=== PATIENT | female | born 1970 | race American Indian/Alaskan Native ===

== ENCOUNTER 2017-02-02 19:55 | Observation (INO) | payer MEDICAID, OTHER ==
--- NOTE | 2017-02-02 20:50 | ED PDOC ---
Arrival/HPI <Camilla Rubin - Last Filed: 02/02/17 22:55> <Edson Dolan - Last Filed: 02/03/17 00:17> - General Chief Complaint: Abdominal Pain Time Seen by Provider: 02/02/17 20:04 - History of Present Illness Narrative History of Present Illness (Text): 02/02/17 20:43 46 year old F w/ Past medical history of Hypertension and IDDM presents to the emergency depart complaining of nausea, abd pain, and headache. Pt states Sx began on Sunday w/ NB diarrhea x3 episodes. Pt began having generalized, crampy abd pain shortly after. Pt describes a "dropping" sensation after diarrhea. Yesterday, pt reports developing nausea but no vomiting. Pt reports being unable to tolerate her saliva or water. Pt admits to decreased appetite, myalgia, generalized weakness, fatigue. Pt reports chronic reflux w/ recent worsening. Pt admits to cough, MORALES, R arm pain, L knee pain; denies subjective F/ V, changes in vision, dysuria. (Camilla Rubin) Past Medical History - Provider Review Nursing Documentation Reviewed: Yes - Infectious Disease Hx of Infectious Diseases: None - Tetanus Immunization Tetanus Immunization: Unknown - Reproductive Menopause: Yes - Cardiac Hx Hypertension: Yes - Pulmonary Hx Bronchitis: Yes Hx Sleep Apnea: Yes - Neurological Hx Neurological Disorder: No - HEENT Hx HEENT Disorder: No - Renal Hx Renal Disorder: Yes - Endocrine/Metabolic Hx Endocrine Disorders: Yes Hx Diabetes Mellitus Type 2: Yes - Hematological/Oncological Hx Blood Disorders: No - Integumentary Hx Dermatological Disorder: No - Musculoskeletal/Rheumatological Hx Musculoskeletal Disorders: No - Gastrointestinal Hx Gastrointestinal Disorders: Yes Hx Constipation: Yes - Genitourinary/Gynecological Other/Comment: fibroids - Psychiatric Hx Anxiety: Yes Hx Depression: Yes Hx Substance Use: No - Surgical History Other/Comment: cyst (right ovary) and fibroid removal - Anesthesia Hx Anesthesia: Yes - Suicidal Assessment Feels Threatened In Home Enviroment: No <Camilla Rubin - Last Filed: 02/02/17 22:55> Family/Social History Family/Social History: Neoplasm/Cancer (pancreatic, breast) Smoking Status: Never Smoked Hx Alcohol Use: No Hx Substance Use: No <Camilla Rubin - Last Filed: 02/02/17 22:55> Allergies/Home Meds <Camilla Rubin - Last Filed: 02/02/17 22:55> <Edson Dolan - Last Filed: 02/03/17 00:17> Allergies/Adverse Reactions: Allergies No Known Allergies Allergy (Verified 02/02/17 19:57) Home Medications: Home Meds Medication Instructions Recorded Confirmed Metformin Hydrochloride [Metformin] 1,000 mg PO BID 01/22/15 02/02/17 Atenolol [Tenormin] 25 mg PO DAILY 02/02/17 02/02/17 Chlorthalidone [Hygroton] 25 mg PO DAILY 02/02/17 02/02/17 Insulin NPH Hum/Reg Insulin Hm 5 unit SC TID 02/02/17 02/02/17 [Humulin 70/30 Kwikpen] Omeprazole [Omeprazole] 40 mg PO DAILY 02/02/17 02/02/17 Review of Systems - Physician Review All systems were reviewed & negative as marked: Yes - Review of Systems Eyes: absent: Vision Changes Cardiovascular: absent: Chest Pain <ScottieCamilla - Last Filed: 02/02/17 22:55> Physical Exam Vital Signs Reviewed: Yes Temperature: Febrile Blood Pressure: Hypertensive Pulse: Tachycardic Respiratory Rate: Normal Appearance: Positive for: Ill-Appearing Pain Distress: None Mental Status: Positive for: Alert and Oriented X 3 - Systems Exam Head: Present: Atraumatic, Normocephalic Pupils: Present: PERRL Extroacular Muscles: Present: EOMI Conjunctiva: Present: Normal Mouth: Present: Moist Mucous Membranes Nose (Internal): Present: Normal Inspection Respiratory/Chest: Present: Clear to Auscultation, Good Air Exchange. No: Respiratory Distress, Accessory Muscle Use Cardiovascular: Present: Regular Rate and Rhythm, Normal S1, S2. No: Murmurs Abdomen: Present: Tenderness (minimal ), Normal Bowel Sounds. No: Distention, Peritoneal Signs, Rebound, Guarding Back: No: CVA Tenderness Upper Extremity: Present: Normal Inspection Lower Extremity: Present: Edema (L non-pitting edema) Neurological: Present: GCS=15, Speech Normal Skin: Present: Warm, Dry, Normal Color Psychiatric: Present: Alert, Oriented x 3, Normal Affect, Normal Mood <ScottieCamilla - Last Filed: 02/02/17 22:55> Medical Decision Making - Lab Interpretations I have reviewed the lab results: Yes <Camilla Rubin - Last Filed: 02/02/17 22:55> <Edson Dolan - Last Filed: 02/03/17 00:17> ED Course and Treatment: 02/02/17 20:59 46 year old F w/ abd pain - CBC, CMP, Lipase, Urinalysis and culture - CXR - Venous doppler r/o DVT - Tylenol 650mg - Pain control - anti-emetic (Camilla Rubin) 02/03/17 00:16 Seen and examined with resident. 46 y/o F p/w nausea and diarrhea with nontender abdominal pain. Hypokalemic on evaluation. Sepsis screening positive but lactate negative and not hypotensive. Accepted for observation. (Edson Dolan ) - Lab Interpretations Lab Results: 02/02/17 20:50 02/02/17 20:50 Lab Results 02/02/17 20:50: pO2 55, VBG pH 7.46 H, VBG pCO2 49.0, VBG HCO3 34.8 H, VBG Total CO2 36.3 H, VBG O2 Sat (Calc) 94.2 H, VBG Base Excess 9.4 H, VBG Potassium 2.6 L, Sodium 140.0, Chloride 105.0, Glucose 180 H, Lactate 0.9, FiO2 21.0, Venous Blood Potassium 2.6 L 02/02/17 20:50: Sodium 139, Chloride 97 L, Potassium 2.8 L*, Carbon Dioxide 34 H , Anion Gap 11, BUN 13, Creatinine 0.9, Est GFR ( Amer) > 60, Est GFR ( Non-Af Amer) > 60, Random Glucose 194 H, Calcium 9.5, Total Bilirubin 0.6, AST 25, ALT 28, Alkaline Phosphatase 64, Total Protein 7.8, Albumin 4.3, Globulin 3.5, Albumin/Globulin Ratio 1.2, Lipase 166 02/02/17 20:50: WBC 6.3, RBC 3.81, Hgb 11.6 L, Hct 32.5 L, MCV 85.3, MCH 30.4, MCHC 35.7, RDW 13.0, Plt Count 312, MPV 8.8, Gran % 65.9, Lymph % (Auto) 27.2, Jay % (Auto) 4.5, Eos % (Auto) 2.1, Baso % (Auto) 0.3, Gran # 4.13, Lymph # 1.7 , Jay # 0.3, Eos # 0.1, Baso # 0.02 - RAD Interpretation Radiology Orders: 02/02/17 20:41 CXR [CHEST PORTABLE] [RAD] Stat 02/02/17 20:48 DUPLEX LOWER EXTRM VEIN LEFT [US] Stat Duplex negative for DVT. CXR no active disease as read by me (Camilla Rubin) - Medication Orders Current Medication Orders: Atenolol (Tenormin) 25 mg PO DAILY SAMANTHA Potassium Chloride (Potassium Chloride 10 Meq/100 Ml) 10 meq in 100 mls @ 100 mls/hr IVPB Q2H SAMANTHA Stop: 02/03/17 00:29 Last Admin: 02/02/17 21:29 Dose: 100 mls/hr Sodium Chloride (Sodium Chloride 0.9%) 1,000 mls @ 100 mls/hr IV .Q10H SAMANTHA Metronidazole (Flagyl) 250 mg in 50 mls @ 100 mls/hr IVPB Q8 SAMANTHA PRN Reason: Protocol Stop: 02/08/17 06:01 Ceftriaxone Sodium (Rocephin 1 Gram Ivpb) 1 gm in 100 mls @ 100 mls/hr IVPB DAILY SAMANTHA PRN Reason: Protocol Pantoprazole Sodium (Protonix Ec Tab) 40 mg PO ACB SAMANTHA Discontinued Medications Acetaminophen (Tylenol 325mg Tab) 650 mg PO STAT STA Stop: 02/02/17 20:51 Last Admin: 02/02/17 21:20 Dose: 650 mg Famotidine (Pepcid) 20 mg IVP STAT STA Stop: 02/02/17 20:50 Last Admin: 02/02/17 21:21 Dose: 20 mg Sodium Chloride (Sodium Chloride 0.9%) 1,000 mls @ 999 mls/hr IV .Q1H1M STA Stop: 02/02/17 22:02 Last Admin: 02/02/17 21:21 Dose: 999 mls/hr Ketorolac Tromethamine (Toradol) 30 mg IVP STAT STA Stop: 02/02/17 20:42 Last Admin: 02/02/17 21:21 Dose: 30 mg Ondansetron HCl (Zofran Inj) 4 mg IVP STAT STA Stop: 02/02/17 20:42 Last Admin: 02/02/17 21:20 Dose: 4 mg Disposition/Present on Arrival - Present on Arrival Any Indicators Present on Arrival: No History of DVT/PE: No History of Uncontrolled Diabetes: No Urinary Catheter: No History of Decub. Ulcer: No History Surgical Site Infection Following: None - Disposition Have Diagnosis and Disposition been Completed?: Yes Disposition Time: 22:55 <Camilla Rubin - Last Filed: 02/02/17 22:55> - Disposition Patient Plan: Observation <Edson Dolan - Last Filed: 02/03/17 00:17> - Disposition Diagnosis: Hypokalemia, Abdominal pain Disposition: HOSPITALIZED Patient Problems: Current Active Problems Problem Status Onset Abdominal pain Acute Hypokalemia Acute Condition: GOOD
[2017-02-02 20:58] LABS: ADD MANUAL DIFF? NO
[2017-02-02] MEDS ORDERED: Sodium Chloride 0.9% 1,000 ML IV STA (21:02)
[2017-02-02 21:03] LABS: VENOUS BLOOD GAS BASE EXCESS 9.4 mmol/L (0.0-2.0); VENOUS BLOOD PH 7.46 (7.32-7.43)
[2017-02-02 21:07] LABS: BASO # 0.02 K/mm3 (0.0-2.0); BASO % 0.3 % (0.0-3.0); EOS # 0.1 (0.0-0.7); EOS % 2.1 % (1.5-5.0); GRAN # 4.13 (1.4-6.5); GRAN % 65.9 % (50.0-68.0); HEMATOCRIT 32.5 % (36.0-48.0); LYMPH # 1.7 (1.2-3.4); LYMPH % 27.2 % (22.0-35.0); MEAN CELL VOLUME 85.3 fL (80.0-105.0); MEAN CORPUSCULAR HEMOGLOBIN 30.4 pg (25.0-35.0); MEAN CORPUSCULAR HGB CONC 35.7 g/dl (31.0-37.0); MEAN PLATELET VOLUME 8.8 fl (7.0-11.0); MONO # 0.3 (0.1-0.6); MONO % 4.5 % (1.0-6.0); PLATELET COUNT 312 10^3/uL (120.0-450.0); WHITE BLOOD COUNT 6.3 10^3/ul (4.5-11.0)
[2017-02-02 21:12] LABS: ALB/GLOB RATIO 1.2 (1.1-1.8); ALKALINE PHOSPHATASE 64 U/L (38-133); ALT/SGPT 28 U/L (7-56); AST/SGOT 25 U/L (15-39); BILIRUBIN,TOTAL 0.6 mg/dL (0.2-1.3); BLOOD UREA NITROGEN 13 mg/dL (7-21); CALCIUM 9.5 mg/dL (8.4-10.5); CARBON DIOXIDE 34 mmol/L (21-33); CHLORIDE 97 mmol/L (98-107); GFR AFRICAN-AMERICAN > 60; GLUCOSE,RANDOM 194 mg/dL (70-110); LIPASE 166 U/L (23-300); SODIUM 139 mmol/L (132-148); TOTAL PROTEIN 7.8 g/dL (5.8-8.3)
[2017-02-02 21:16] LABS: POTASSIUM 2.8 mmol/L (3.6-5.0)
[2017-02-02 23:49] LABS: PH,URINE 6.5 (4.7-8.0); URINE BILIRUBIN NEGATIVE (NEGATIVE); URINE BLOOD NEGATIVE (NEGATIVE); URINE GLUCOSE (UA) NEGATIVE (NEGATIVE); URINE KETONE NEGATIVE (NEGATIVE); URINE LEUKOCYTE ESTERASE NEGATIVE Leu/uL (NEGATIVE); URINE PROTEIN NEGATIVE mg/dL (<30 mg/dL); URINE UROBILINOGEN 0.2 E.U./dL (<1 E.U./dL)
[2017-02-02 23:51] LABS: URINE APPEARANCE CLEAR (CLEAR); URINE COLOR LIGHT YELLOW (YELLOW)
[2017-02-03] MEDS ORDERED: Sodium Chloride 0.9% 1,000 ML IV SCH (00:15)
--- NOTE | 2017-02-03 01:58 | CP.PCM.HP ---
<Tana Peters - Last Filed: 02/03/17 02:32> History of Present Illness - History of Present Illness History of Present Illness: PGY-1 H&P 46 yo female with PMH of HTN and IDDM presents to the ED with nausea, abd pain, and headache. Pt states that her abd pain began 2 days ago with multiple episodes of non bloody diarrhea. Pt began having generalized, crampy abd pain. Patient also reports a "dropping" sensation after diarrhea. patient reports developing nausea but no vomiting yesterday. She states that she believed she has food poisoning from a turkey sandwich she ate on Sunday. Pt admits to decreased appetite, myalgia, generalized weakness, fatigue. Patient also complains of non productive cough, headache, and right arm pain that has been present fro the past few months. She denies fever, vomiting, changes in vision, dysuria. She also states that she is loosing weight, 10 lb over past few months. PMH: HTN, DM, fibroids PSH: cyst and fibroid removal social hx: denies smoking, occasional alcohol use, denies illicit drug use family hx: mother- cancer, father- stroke allergy: NKDA, seasonal PMD: currently switching to different provider Present on Admission - Present on Admission Any Indicators Present on Admission: No Review of Systems - Constitutional Constitutional: Chills, Fatigue, Headache, Weight Loss, Weakness. absent: Fever - EENT Eyes: absent: Change in Vision Nose/Mouth/Throat: Nasal Congestion. absent: Nasal Discharge, Sore Throat - Cardiovascular Cardiovascular: absent: Chest Pain, Diaphoresis, Dyspnea, Palpitations - Respiratory Respiratory: absent: Cough, Dyspnea, Hemoptysis - Gastrointestinal Gastrointestinal: Abdominal Pain, Cramping, Diarrhea, Nausea. absent: Constipation, Hematemesis, Hematochezia, Vomiting - Genitourinary Genitourinary: absent: Difficulty Urinating, Dysuria, Hematuria, Urinary Frequency - Musculoskeletal Musculoskeletal: Myalgias (right arm). absent: Arthralgias, Joint Swelling, Numbness, Tingling - Integumentary Integumentary: absent: Rash, Skin Ulcer, Sores, Swelling, Wounds - Neurological Neurological: Headaches, Weakness. absent: Dizziness, Numbness, Syncope, Tingling - Hematologic/Lymphatic Hematologic: absent: Easy Bleeding, Easy Bruising Past Patient History - Infectious Disease Hx of Infectious Diseases: None - Tetanus Immunizations Tetanus Immunization: Unknown - Past Social History Smoking Status: Never Smoked Alcohol: Occasional Drugs: Denies - CARDIAC Hx Hypertension: Yes - PULMONARY Hx Bronchitis: Yes Hx Sleep Apnea: Yes - NEUROLOGICAL Hx Neurological Disorder: No - HEENT Hx HEENT Problems: No - RENAL Hx Chronic Kidney Disease: Yes - ENDOCRINE/METABOLIC Hx Endocrine Disorders: Yes Hx Diabetes Mellitus Type 2: Yes - HEMATOLOGICAL/ONCOLOGICAL Hx Blood Disorders: No - INTEGUMENTARY Hx Dermatological Problems: No - MUSCULOSKELETAL/RHEUMATOLOGICAL Hx Musculoskeletal Disorders: No - GASTROINTESTINAL Hx Gastrointestinal Disorders: Yes Hx Constipation: Yes - GENITOURINARY/GYNECOLOGICAL Other/Comment: fibroids - PSYCHIATRIC Hx Anxiety: Yes Hx Depression: Yes Hx Substance Use: No - SURGICAL HISTORY Other/Comment: cyst (right ovary) and fibroid removal - ANESTHESIA Hx Anesthesia: Yes Meds Allergies/Adverse Reactions: Allergies Allergy/AdvReac Type Severity Reaction Status Date / Time No Known Allergies Allergy Verified 02/02/17 19:57 Physical Exam - Constitutional Appears: No Acute Distress - Head Exam Head Exam: ATRAUMATIC, NORMOCEPHALIC - Eye Exam Eye Exam: EOMI, Normal appearance - ENT Exam ENT Exam: Mucous Membranes Moist - Respiratory Exam Respiratory Exam: Clear to Auscultation Bilateral, NORMAL BREATHING PATTERN. absent: Decreased Breath Sounds, Rales, Rhonchi, Wheezes, Respiratory Distress - Cardiovascular Exam Cardiovascular Exam: REGULAR RHYTHM, +S1, +S2. absent: Tachycardia, Diastolic murmur, Systolic Murmur - GI/Abdominal Exam GI & Abdominal Exam: Normal Bowel Sounds, Soft, Tenderness. absent: Distended, Firm, Guarding - Extremities Exam Extremities exam: Positive for: normal inspection. Negative for: pedal edema, tenderness - Neurological Exam Neurological exam: Oriented x3 Additional comments: Patient is very lethargic - Skin Skin Exam: Dry, Intact, Normal Color, Warm Results - Vital Signs Recent Vital Signs: Last Vital Signs Temp 98.4 F 02/02/17 23:31 Pulse 73 02/03/17 01:02 Resp 16 02/03/17 01:02 BP 135/92 H 02/03/17 01:02 Pulse Ox 98 02/03/17 01:02 - Labs Result Diagrams: 02/02/17 20:50 02/02/17 20:50 Labs: Laboratory Results - last 24 hr 02/02/17 23:28 Urine Color Light yellow Urine Appearance Clear Urine pH 6.5 Ur Specific [place] 1.010 Urine Protein Negative Urine Glucose (UA) Negative Urine Ketones Negative Urine Blood Negative Urine Nitrate Negative Urine Bilirubin Negative Urine Urobilinogen 0.2 Ur Leukocyte Esterase Negative Assessment & Plan - Assessment and Plan (Free Text) Assessment: 46 yo female with PMH of HTN and IDDM presents to the ED with nausea, abd pain most likely secondary to gastroenteritis, found to be hypokalemic in ED. Plan: 1. abd pain/ nausea - febrile on admission without leukocytosis - most likely gastroenteritis - will order abd/pel CT - NPO - IVF NS @100 - will start rocefen and flagyl - procalcitonin 2. hypokalemia - 2.9 in ED - replaced wuth 2 K riders - repeat in AM 3. DM - hold home insulin while pt is NPO - ISSS- low - fingersticks ACHS 4. HTN - cont home atenolol - hold thiazide diuretic due to hypokalemia - cont to monitor ppx GI- protonix DVT- SCDs <Madiha Beal - Last Filed: 02/03/17 06:58> Results - Vital Signs Recent Vital Signs: Last Vital Signs Temp 98.2 F 02/03/17 02:19 Pulse 61 02/03/17 02:19 Resp 20 02/03/17 02:19 BP 113/84 02/03/17 02:19 Pulse Ox 98 02/03/17 01:02 - Labs Result Diagrams: 02/02/17 20:50 02/02/17 20:50 Labs: Laboratory Results - last 24 hr 02/02/17 23:28 Urine Color Light yellow Urine Appearance Clear Urine pH 6.5 Ur Specific [place] 1.010 Urine Protein Negative Urine Glucose (UA) Negative Urine Ketones Negative Urine Blood Negative Urine Nitrate Negative Urine Bilirubin Negative Urine Urobilinogen 0.2 Ur Leukocyte Esterase Negative Attending/Attestation - Attestation I have personally seen and examined this patient.: Yes I have fully participated in the care of the patient.: Yes I have reviewed all pertinent clinical information: Yes Notes (Text): 02/03/17 06:57 Patient was seen when she was in room # 568-02 Agree with history , physical examination , assessment and plan.
[2017-02-03 02:52] VITALS: RESP 20; BMI 29.8
[2017-02-03] MEDS: metroNIDAZOLE IV 250mg/50 ml 250 MG/50 ML BAG IVPB SCH ×3 (05:39→21:49)
[2017-02-03] MEDS ORDERED: Pantoprazole 40 mg EC Tab PO SCH (07:30)
[2017-02-03 07:36] LABS: ADD MANUAL DIFF? NO
[2017-02-03 08:01] LABS: ALB/GLOB RATIO 1.1 (1.1-1.8); ALKALINE PHOSPHATASE 56 U/L (38-133); ALT/SGPT 25 U/L (7-56); AST/SGOT 24 U/L (15-39); BILIRUBIN,TOTAL 0.5 mg/dL (0.2-1.3); BLOOD UREA NITROGEN 13 mg/dL (7-21); CALCIUM 8.6 mg/dL (8.4-10.5); CARBON DIOXIDE 31 mmol/L (21-33); CHLORIDE 103 mmol/L (98-107); GFR AFRICAN-AMERICAN > 60; GLUCOSE,RANDOM 123 mg/dL (70-110); SODIUM 141 mmol/L (132-148)
[2017-02-03 08:29] LABS: POTASSIUM 2.7 mmol/L (3.6-5.0)
[2017-02-03 08:46] LABS: BASO # 0.01 K/mm3 (0.0-2.0); BASO % 0.2 % (0.0-3.0); EOS # 0.2 (0.0-0.7); EOS % 3.5 % (1.5-5.0); GRAN % 39.5 % (50.0-68.0); HEMATOCRIT 30.4 % (36.0-48.0); LYMPH # 2.4 (1.2-3.4); LYMPH % 49.1 % (22.0-35.0); MEAN CELL VOLUME 85.6 fL (80.0-105.0); MEAN CORPUSCULAR HEMOGLOBIN 29.3 pg (25.0-35.0); MEAN CORPUSCULAR HGB CONC 34.2 g/dl (31.0-37.0); MEAN PLATELET VOLUME 8.9 fl (7.0-11.0); MONO # 0.4 (0.1-0.6); MONO % 7.7 % (1.0-6.0); PLATELET COUNT 292 10^3/uL (120.0-450.0); WHITE BLOOD COUNT 4.8 10^3/ul (4.5-11.0)
[2017-02-03] MEDS ORDERED: Potassium Chloride 20 mEq ER Tab PO ONE ×2 (09:41→12:47)
[2017-02-03] MEDS: cefTRIAXone 1 gm 1 GM/100 ML BAG IVPB SCH (09:49)
--- NOTE | 2017-02-03 09:59 | CT ---
PROCEDURE: CT Abdomen and Pelvis without intravenous contrast HISTORY: abd pain COMPARISON: None. TECHNIQUE: Technique. Contrast Dose: Radiation dose: Total exam DLP = 549 mGy-cm. This CT exam was performed using one or more of the following dose reduction techniques: Automated exposure control, adjustment of the mA and/or kV according to patient size, and/or use of iterative reconstruction technique. FINDINGS: LOWER THORAX: Unremarkable. LIVER: Unremarkable. No gross lesion or ductal dilatation. GALLBLADDER AND BILE DUCTS: Unremarkable. PANCREAS: Unremarkable. No gross lesion or ductal dilatation. SPLEEN: Unremarkable. ADRENALS: Unremarkable. No mass. KIDNEYS AND URETERS: 2.7 centimeter right upper pole renal cyst.. No hydronephrosis. No solid mass. VASCULATURE: Unremarkable. No aortic aneurysm. BOWEL: Unremarkable. No obstruction. No gross mural thickening. APPENDIX: Unremarkable. Normal appendix. PERITONEUM: Unremarkable. No free fluid. No free air. LYMPH NODES: Unremarkable. No enlarged lymph nodes. BLADDER: Unremarkable. REPRODUCTIVE: Leiomyomatous uterus. BONES: No acute fracture. OTHER FINDINGS: None. IMPRESSION: Right renal cyst. Leiomyomatous uterus.
--- NOTE | 2017-02-03 10:01 | RAD ---
HISTORY: fever COMPARISON: No prior. FINDINGS: LUNGS: No active pulmonary disease. PLEURA: No significant pleural effusion identified, no pneumothorax apparent. CARDIOVASCULAR: Normal. OSSEOUS STRUCTURES: No significant abnormalities. VISUALIZED UPPER ABDOMEN: Normal. OTHER FINDINGS: None. IMPRESSION: No active disease.
[2017-02-03] MEDS: Insulin Reg-MEDIUM-Coverage SC SCH ×3 (12:36→21:58)
--- NOTE | 2017-02-03 13:08 | US ---
PROCEDURE: Left lower extremity venous US HISTORY: Leg pain and swelling. Evaluate for DVT. PHYSICIAN(S): Jairo Loyola MD. TECHNIQUE: Duplex sonography and color-flow Doppler with graded compression were used to evaluate the deep venous system of the left lower extremity. FINDINGS: The visualized deep venous system of the left lower extremity is sonographically normal and compressible. Normal wave forms and augmentation are seen. There is no sonographic evidence for deep venous thrombosis in the visualized segments of the left lower extremity. IMPRESSION: 1. No sonographic evidence for deep venous thrombosis in the visualized segments of the left lower extremity.
--- NOTE | 2017-02-03 14:34 | US ---
PROCEDURE: HISTORY: LLQ pain, F/U uterine fibroids COMPARISON: TECHNIQUE: FINDINGS: The uterus measures 10.5 x 5.5 x 5.9 centimeters. There is a 3.7 centimeter central leiomyoma. The endometrium measures 6 millimeters. The right ovary measures 2.7 x 2.0 centimeters. Left ovary is not identified. There is no free fluid the pelvis. IMPRESSION: Leiomyomatous uterus.
[2017-02-03] MEDS: POLYETHYLENE GLYCOL 3350 17 GM/Dose PACKET PO SCH (16:21)
[2017-02-03 17:07] VITALS: TEMP 98.1
[2017-02-04] MEDS: metroNIDAZOLE IV 250mg/50 ml 250 MG/50 ML BAG IVPB SCH (05:25)
[2017-02-04 07:10] LABS: ADD MANUAL DIFF? NO
[2017-02-04 07:17] LABS: BASO # 0.02 K/mm3 (0.0-2.0); BASO % 0.4 % (0.0-3.0); EOS # 0.3 (0.0-0.7); EOS % 5.5 % (1.5-5.0); GRAN # 2.07 (1.4-6.5); GRAN % 45.4 % (50.0-68.0); HEMATOCRIT 29.7 % (36.0-48.0); LYMPH % 44.3 % (22.0-35.0); MEAN CELL VOLUME 85.8 fL (80.0-105.0); MEAN CORPUSCULAR HEMOGLOBIN 29.5 pg (25.0-35.0); MEAN CORPUSCULAR HGB CONC 34.3 g/dl (31.0-37.0); MEAN PLATELET VOLUME 8.8 fl (7.0-11.0); MONO # 0.2 (0.1-0.6); MONO % 4.4 % (1.0-6.0); PLATELET COUNT 272 10^3/uL (120.0-450.0); RED CELL DISTRIBUTION WIDTH 13.1 % (11.5-14.5); WHITE BLOOD COUNT 4.6 10^3/ul (4.5-11.0)
[2017-02-04 07:34] LABS: ALB/GLOB RATIO 1.1 (1.1-1.8); ALKALINE PHOSPHATASE 54 U/L (38-133); ALT/SGPT 32 U/L (7-56); AST/SGOT 23 U/L (15-39); BILIRUBIN,TOTAL 0.3 mg/dL (0.2-1.3); BLOOD UREA NITROGEN 12 mg/dL (7-21); CALCIUM 8.5 mg/dL (8.4-10.5); CARBON DIOXIDE 27 mmol/L (21-33); CHLORIDE 106 mmol/L (98-107); GFR AFRICAN-AMERICAN > 60; GLUCOSE,RANDOM 197 mg/dL (70-110); POTASSIUM 3.9 mmol/L (3.6-5.0); SODIUM 140 mmol/L (132-148); TOTAL PROTEIN 6.6 g/dL (5.8-8.3)
[2017-02-04] MEDS: Insulin Reg-MEDIUM-Coverage SC SCH (08:00)
[2017-02-04 08:48] VITALS: BP 145/89; PULSE 71; O2SAT 98
--- NOTE | 2017-02-04 08:54 | PN ---
DATE: 02/04/2017 I examined the patient this morning. She is a 46-year-old black female admitted with complaints of abdominal pain, burning, dyspepsia, also hypokalemia. Symptoms were suggestive of a possible gastroenteritis. Today, relative to yesterday, symptoms improved, is able to handle some degree of a diet. Pain decreased by roughly 50% or more. No complaints of nausea, vomiting , or dysphagia. The patient was apparently given something for her bowel movements yesterday. Still having somewhat of a difficult time due to uterine fibroids, which she feels are causing a compressive effect on distal segment of the colon. PHYSICAL EXAMINATION: VITAL SIGNS: I reviewed this patient's vital signs. HEENT: Noncontributory. LUNGS: Clear to auscultation. HEART: Regular rhythm. ABDOMEN: Significant for no tenderness in the epigastric, left upper quadrant or right upper quadrant or periumbilical. She is exhibiting some very mild cramping sensation in the left lower quadrant and suprapubic area. I reviewed the patient's laboratory data to date. OVERALL ASSESSMENT: This is a 46-year-old female admitted with complaints of abdominal cramping, change in bowel movements, currently doing better on the current therapeutic regimen. The patient has no nausea or vomiting. Abdominal pain has somewhat resolved. I did advise her to practice antireflux precautions and discussed this on several occasions. It was suggested that medication for acid reflux should be taken on a consistent basis rather than intermittently. As indicated in my note yesterday, the patient related a history of Helicobacter pylori positivity in the range of 2007. She was very dubious about whether antibiotics were given at that time point. Suggest after discharge the patient follow up with the lab request for an Helicobacter pylori breath and stool test to verify clearance of the organism. The patient has a history of uterine fibroids documented on current imaging studies. She had previously been scheduled for surgery. However, this was deferred at that time point due to hyperglycemia. This should probably be corrected in the very near future. As of this time point, due to the compressive effect of the fibroids, not much I can do to alleviate change in bowel movements except possible stool softener, full liquid diet or something very soft to pass by the large uterine fibroids. The patient is currently on a regular diet and seems to have tolerated that fine. Isael Taylor DO, PhD cc: [id number] TT: 02/04/2017 08:53:13 Confirmation # [id number] Dictation # [id number] en MTDD
[2017-02-04] MEDS ORDERED: Magnesium Citrate Oral SOL (300 ml) PO ONE (09:26)
[2017-02-04] MEDS: POLYETHYLENE GLYCOL 3350 17 GM/Dose PACKET PO SCH (09:49)
[2017-02-04] MEDS: cefTRIAXone 1 gm 1 GM/100 ML BAG IVPB SCH (09:50)
--- NOTE | 2017-02-04 12:10 | CP.PCM.DIS ---
<Xiomara Schmidt - Last Filed: 02/04/17 12:15> Provider - Provider Date of Admission: 02/02/17 23:09 Attending physician: Ju Blas MD Primary care physician: Faisal Palomino MD Consults: GI: Dr. Taylor Time Spent in preparation of Discharge (in minutes): 45 Diagnosis - Discharge Diagnosis (1) GERD (gastroesophageal reflux disease) Status: Chronic (2) Uterine fibroid Status: Chronic (3) Abdominal pain Status: Acute Hospital Course - Lab Results Lab Results: Most Recent Lab Values WBC 4.6 10^3/ul (4.5-11.0) 02/04/17 07:08 RBC 3.46 10^6/uL (3.5-6.1) L 02/04/17 07:08 Hgb 10.2 gm/dL (12.0-16.0) L 02/04/17 07:08 Hct 29.7 % (36.0-48.0) L 02/04/17 07:08 MCV 85.8 fL (80.0-105.0) 02/04/17 07:08 MCH 29.5 pg (25.0-35.0) 02/04/17 07:08 MCHC 34.3 g/dl (31.0-37.0) 02/04/17 07:08 RDW 13.1 % (11.5-14.5) 02/04/17 07:08 Plt Count 272 10^3/uL (120.0-450.0) 02/04/17 07:08 MPV 8.8 fl (7.0-11.0) 02/04/17 07:08 Gran % 45.4 % (50.0-68.0) L 02/04/17 07:08 Lymph % (Auto) 44.3 % (22.0-35.0) H 02/04/17 07:08 [place] % (Auto) 4.4 % (1.0-6.0) 02/04/17 07:08 Eos % (Auto) 5.5 % (1.5-5.0) H 02/04/17 07:08 Baso % (Auto) 0.4 % (0.0-3.0) 02/04/17 07:08 Gran # 2.07 (1.4-6.5) 02/04/17 07:08 Lymph # 2.0 (1.2-3.4) 02/04/17 07:08 [place] # 0.2 (0.1-0.6) 02/04/17 07:08 Eos # 0.3 (0.0-0.7) 02/04/17 07:08 Baso # 0.02 K/mm3 (0.0-2.0) 02/04/17 07:08 pO2 55 mm/Hg (30-55) 02/02/17 20:50 VBG pH 7.46 (7.32-7.43) H 02/02/17 20:50 VBG pCO2 49.0 (40-60) 02/02/17 20:50 VBG HCO3 34.8 mmol/l (21-28) H 02/02/17 20:50 VBG Total CO2 36.3 mmol.L (22-28) H 02/02/17 20:50 VBG O2 Sat (Calc) 94.2 % (40-65) H 02/02/17 20:50 VBG Base Excess 9.4 mmol/L (0.0-2.0) H 02/02/17 20:50 VBG Potassium 2.6 mmol/L (3.6-5.2) L 02/02/17 20:50 Sodium 140.0 mmol/L (132-148) 02/02/17 20:50 Chloride 105.0 mmol/L (98-107) 02/02/17 20:50 Glucose 180 mg/dl (65-105) H 02/02/17 20:50 Lactate 0.9 mmol/L (0.7-2.1) 02/02/17 20:50 FiO2 21.0 % 02/02/17 20:50 Sodium 140 mmol/L (132-148) 02/04/17 07:08 Potassium 3.9 mmol/L (3.6-5.0) 02/04/17 07:08 Chloride 106 mmol/L (98-107) 02/04/17 07:08 Carbon Dioxide 27 mmol/L (21-33) 02/04/17 07:08 Anion Gap 11 (10-20) 02/04/17 07:08 BUN 12 mg/dL (7-21) 02/04/17 07:08 Creatinine 0.8 mg/dL (0.5-1.4) 02/04/17 07:08 Est GFR ( Amer) > 60 02/04/17 07:08 Est GFR (Non-Af Amer) > 60 02/04/17 07:08 Random Glucose 197 mg/dL (70-110) H 02/04/17 07:08 Calcium 8.5 mg/dL (8.4-10.5) 02/04/17 07:08 Magnesium 2.0 mg/dL (1.7-2.2) 02/03/17 09:20 Total Bilirubin 0.3 mg/dL (0.2-1.3) 02/04/17 07:08 AST 23 U/L (15-39) 02/04/17 07:08 ALT 32 U/L (7-56) 02/04/17 07:08 Alkaline Phosphatase 54 U/L (38-133) 02/04/17 07:08 Total Protein 6.6 g/dL (5.8-8.3) 02/04/17 07:08 Albumin 3.4 g/dL (3.0-4.8) 02/04/17 07:08 Globulin 3.2 gm/dL 02/04/17 07:08 Albumin/Globulin Ratio 1.1 (1.1-1.8) 02/04/17 07:08 Lipase 166 U/L (23-300) 02/02/17 20:50 Procalcitonin 0.13 NG/ML (0.19-0.49) L 02/03/17 01:00 Venous Blood Potassium 2.6 mmol/L (3.6-5.2) L 02/02/17 20:50 Urine Color Light yellow (YELLOW) 02/02/17 23:28 Urine Appearance Clear (CLEAR) 02/02/17 23:28 Urine pH 6.5 (4.7-8.0) 02/02/17 23:28 Ur Specific Maple 1.010 (1.005-1.035) 02/02/17 23:28 Urine Protein Negative mg/dL (<30 mg/dL) 02/02/17 23:28 Urine Glucose (UA) Negative mg/dL (NEGATIVE) 02/02/17 23:28 Urine Ketones Negative mg/dL (NEGATIVE) 02/02/17 23:28 Urine Blood Negative (NEGATIVE) 02/02/17 23:28 Urine Nitrate Negative (NEGATIVE) 02/02/17 23:28 Urine Bilirubin Negative (NEGATIVE) 02/02/17 23:28 Urine Urobilinogen 0.2 E.U./dL (<1 E.U./dL) 02/02/17 23:28 Ur Leukocyte Esterase Negative Ann/uL (NEGATIVE) 02/02/17 23:28 - Hospital Course Hospital Course: 46 year old female with past medical history of HTN, DM, fibroids is admitted to hospital for intractable abdominal pain and nausea. Patient was afebrile and had a normal WBC count on admission. Patient was made NPO and started on IV fluids. CT of abdomen showed right renal cyst 2.7 cm and leiomyomatous uterus. Transvaginal US also showed leiomyomatous uterus. GI was consulted and recommended antireflux medications and outpatient follow up for H pylori testing. Patient's diet was slowly advanced and her symptoms improved. Patient deemed stable for discharge. Discharge instructions given to patient: Patient is to follow up with PMD upon discharge. Patient is to follow up with production machine tender, Dr. Taylor upon discharge. Follow up with GI per PMD. Needs outpatient EGD and colonoscopy. Patient is recommended to have H. Pylori testing upon discharge. follow-up with [facility] for fibroid surgery. Patient is discharge with the following medications: Protonix 40 mg po daily # 30 tabs, milk of mag and colace. Script will be given to patient before discharge. - Date & Time of H&P Date of H&P: 02/04/17 Time of H&P: 12:15 Discharge Exam - Head Exam Head Exam: ATRAUMATIC, NORMOCEPHALIC - Eye Exam Eye Exam: EOMI - ENT Exam ENT Exam: Mucous Membranes Moist - Respiratory Exam Respiratory Exam: Clear to PA & Lateral, NORMAL BREATHING PATTERN. absent: Accessory Muscle Use, Rales, Rhonchi, Wheezes, Respiratory Distress - Cardiovascular Exam Cardiovascular Exam: REGULAR RHYTHM, +S1, +S2. absent: Diastolic murmur, Gallop , Rubs, Systolic Murmur - GI/Abdominal Exam GI & Abdominal Exam: Normal Bowel Sounds, Unremarkable. absent: Distended, Firm , Guarding, Rigid, Soft, Tenderness - Extremities Exam Additional comments: no edema or tenderness - Neurological Exam Neurological exam: Alert, Oriented x3 - Psychiatric Exam Psychiatric exam: Normal Affect, Normal Mood - Skin Skin Exam: Dry, Intact, Normal Color, Warm Discharge Plan - Discharge Medications Prescriptions: Docusate [Colace] 100 mg PO BID #30 cap Magnesium Citrate [Citrate of Mag] 1.75 gm PO DAILY #1 bottle Pantoprazole Sodium [Protonix] 40 mg PO DAILY #30 ect - Follow Up Plan Condition: GOOD Disposition: HOME/ ROUTINE Instructions: Uterine Fibroids (DC), Helicobacter Pylori (GEN), Constipation ( GEN), Hypokalemia (DC), Diabetes Mellitus Type 1 in Adults (DC) Additional Instructions: Patient is to follow up with PMD upon discharge. Patient is to follow up with production machine tender, Dr. Taylor upon discharge. Follow up with GI per PMD. Needs outpatient EGD and colonoscopy. Patient is recommended to have H. Pylori testing upon discharge. follow-up with [facility] for fibroid surgery. Patient is discharge with the following medications: Protonix 40 mg po daily # 30 tabs. Script will be given to patient before discharge. Referrals: Faisal Palomino MD [Primary Care Provider] - Isael Taylor DO [Staff Provider] - <Ju Blas - Last Filed: 02/04/17 14:52> Provider - Provider Date of Admission: 02/02/17 23:09 Attending physician: Ju Blas MD Primary care physician: Faisal Palomino MD Hospital Course - Lab Results Lab Results: Micro Results 02/02/17 23:28 Urine Urine Culture - Final No Growth (<1,000 CFU/ML) Most Recent Lab Values WBC 4.6 10^3/ul (4.5-11.0) 02/04/17 07:08 RBC 3.46 10^6/uL (3.5-6.1) L 02/04/17 07:08 Hgb 10.2 gm/dL (12.0-16.0) L 02/04/17 07:08 Hct 29.7 % (36.0-48.0) L 02/04/17 07:08 MCV 85.8 fL (80.0-105.0) 02/04/17 07:08 MCH 29.5 pg (25.0-35.0) 02/04/17 07:08 MCHC 34.3 g/dl (31.0-37.0) 02/04/17 07:08 RDW 13.1 % (11.5-14.5) 02/04/17 07:08 Plt Count 272 10^3/uL (120.0-450.0) 02/04/17 07:08 MPV 8.8 fl (7.0-11.0) 02/04/17 07:08 Gran % 45.4 % (50.0-68.0) L 02/04/17 07:08 Lymph % (Auto) 44.3 % (22.0-35.0) H 02/04/17 07:08 [place] % (Auto) 4.4 % (1.0-6.0) 02/04/17 07:08 Eos % (Auto) 5.5 % (1.5-5.0) H 02/04/17 07:08 Baso % (Auto) 0.4 % (0.0-3.0) 02/04/17 07:08 Gran # 2.07 (1.4-6.5) 02/04/17 07:08 Lymph # 2.0 (1.2-3.4) 02/04/17 07:08 [place] # 0.2 (0.1-0.6) 02/04/17 07:08 Eos # 0.3 (0.0-0.7) 02/04/17 07:08 Baso # 0.02 K/mm3 (0.0-2.0) 02/04/17 07:08 pO2 55 mm/Hg (30-55) 02/02/17 20:50 VBG pH 7.46 (7.32-7.43) H 02/02/17 20:50 VBG pCO2 49.0 (40-60) 02/02/17 20:50 VBG HCO3 34.8 mmol/l (21-28) H 02/02/17 20:50 VBG Total CO2 36.3 mmol.L (22-28) H 02/02/17 20:50 VBG O2 Sat (Calc) 94.2 % (40-65) H 02/02/17 20:50 VBG Base Excess 9.4 mmol/L (0.0-2.0) H 02/02/17 20:50 VBG Potassium 2.6 mmol/L (3.6-5.2) L 02/02/17 20:50 Sodium 140.0 mmol/L (132-148) 02/02/17 20:50 Chloride 105.0 mmol/L (98-107) 02/02/17 20:50 Glucose 180 mg/dl (65-105) H 02/02/17 20:50 Lactate 0.9 mmol/L (0.7-2.1) 02/02/17 20:50 FiO2 21.0 % 02/02/17 20:50 Sodium 140 mmol/L (132-148) 02/04/17 07:08 Potassium 3.9 mmol/L (3.6-5.0) 02/04/17 07:08 Chloride 106 mmol/L (98-107) 02/04/17 07:08 Carbon Dioxide 27 mmol/L (21-33) 02/04/17 07:08 Anion Gap 11 (10-20) 02/04/17 07:08 BUN 12 mg/dL (7-21) 02/04/17 07:08 Creatinine 0.8 mg/dL (0.5-1.4) 02/04/17 07:08 Est GFR ( Amer) > 60 02/04/17 07:08 Est GFR (Non-Af Amer) > 60 02/04/17 07:08 Random Glucose 197 mg/dL (70-110) H 02/04/17 07:08 Calcium 8.5 mg/dL (8.4-10.5) 02/04/17 07:08 Magnesium 2.0 mg/dL (1.7-2.2) 02/03/17 09:20 Total Bilirubin 0.3 mg/dL (0.2-1.3) 02/04/17 07:08 AST 23 U/L (15-39) 02/04/17 07:08 ALT 32 U/L (7-56) 02/04/17 07:08 Alkaline Phosphatase 54 U/L (38-133) 02/04/17 07:08 Total Protein 6.6 g/dL (5.8-8.3) 02/04/17 07:08 Albumin 3.4 g/dL (3.0-4.8) 02/04/17 07:08 Globulin 3.2 gm/dL 02/04/17 07:08 Albumin/Globulin Ratio 1.1 (1.1-1.8) 02/04/17 07:08 Lipase 166 U/L (23-300) 02/02/17 20:50 Procalcitonin 0.13 NG/ML (0.19-0.49) L 02/03/17 01:00 Venous Blood Potassium 2.6 mmol/L (3.6-5.2) L 02/02/17 20:50 Urine Color Light yellow (YELLOW) 02/02/17 23:28 Urine Appearance Clear (CLEAR) 02/02/17 23:28 Urine pH 6.5 (4.7-8.0) 02/02/17 23:28 Ur Specific Maple 1.010 (1.005-1.035) 02/02/17 23:28 Urine Protein Negative mg/dL (<30 mg/dL) 02/02/17 23:28 Urine Glucose (UA) Negative mg/dL (NEGATIVE) 02/02/17 23:28 Urine Ketones Negative mg/dL (NEGATIVE) 02/02/17 23:28 Urine Blood Negative (NEGATIVE) 02/02/17 23:28 Urine Nitrate Negative (NEGATIVE) 02/02/17 23:28 Urine Bilirubin Negative (NEGATIVE) 02/02/17 23:28 Urine Urobilinogen 0.2 E.U./dL (<1 E.U./dL) 02/02/17 23:28 Ur Leukocyte Esterase Negative Ann/uL (NEGATIVE) 02/02/17 23:28 Attending/Attestation - Attestation I have personally seen and examined this patient.: Yes I have fully participated in the care of the patient.: Yes I have reviewed all pertinent clinical information, including history, physical exam and plan: Yes Notes (Text): 02/04/17 14:48 attending note; Patient seen and examined With the resident. patient is a 46-year-old female admitted with abdominal pain. CT abdomen and pelvis is negative for colitis or obstruction. Transvaginal ultrasound showed fibroid uterus. Constipation; treated with Colace and MiraLAX. Max citrate one dose given. Patient had one BM today. History of GERD/hiatus hernia; patient had EGD in the past. Was not sure about H. pylori or treatment. GI evaluation with Dr. Taylor appreciated. We will be discharged home with po Protonix and colace. patient needs outpatient EGD and colonoscopy. Patient will follow up With REPORT[facility] SPECIALIST fibroid treatment. All lab results and radiological findings given to the patient. Follow-up with PMD . Diagnosis; Abdominal pain Constipation GERD Fibroid uterus
--- NOTE | 2017-02-05 07:38 | CON ---
DATE: 02/03/2017 HISTORY OF PRESENT ILLNESS: I examined the patient this morning. She is a 46- year-old black female with past medical history of gastritis, uterine fibroids, diabetes, hypertension, admitted with complaints of nausea, epigastric burning and pain in the suprapubic area and lower quadrants. The patient denied hematemesis or rectal bleeding. She indicated a problem with significant acid reflux and is experiencing burning with intake of food and liquids. According to the ER note, she admits to decreased appetite with muscle aches, generalized weakness, fatigue, etc. She had an endoscopy in 2007 and apparently has been noncompliant with diet, antireflux precautions and taking medications since then. Of note, apparently diagnosis of H. pylori was made at that time point, but she was only given proton pump inhibitors and then took antibiotic regimen for the latter. She has not had an endoscopic evaluation since. Sugars have been labile. However, at the current time point she indicated prior to admission, her sugars have been in the mid 200 range. PHYSICAL EXAMINATION: VITAL SIGNS: I reviewed this patient's vital signs. HEENT: Significant for dry mouth. HEART: Regular rhythm. ABDOMEN: Significant for being nontender in the epigastric and left upper quadrant. She is tender over the area below the umbilicus. Bowel sounds were irregular. LABORATORY DATA: I reviewed this patient's laboratory data, included an H and H initially 11.6/32.5. Potassium has been on the low side, 2.7-2.8. Urine is for the most part negative. I reviewed the CT report as well as the images. The CT indicates a thick wall stomach. No gross evidence of gastroparesis on the CT scan. The remainder of CT indicated uterine fibroid; otherwise, noncontributory to the current problem. OVERALL ASSESSMENT: This is a 46-year-old black female admitted with possible gastroenteritis. Other possibility is continued gastritis due to maybe partially treated Helicobacter pylori. On repeat questioning, the patient denied any prior antibiotic regimens for treatment of Helicobacter pylori. The patient was advised of antireflux precautions as well as taking a proton pump inhibitor on a consistent basis rather than intermittently. She does not complain of solid food dysphagia, has never had endoscopic disimpaction of her esophagus. I would suggest at the current time point to continue on the current medications, which include 40 pantoprazole IV on a daily basis and antireflux precautions. Review of the orders indicate Cipro and metronidazole. I am not really sure why these antibiotics were given. Consult was ordered for gastroparesis issues. At the current time point, I see no evidence or elements in her history to suggest gastroparesis even though she has diabetes. According to history, she has not had any quantitative studies to document the latter. If one wants to consider this, one might consider either gastric emptying study or an electrogastrography study, both of which are not performed at [facility]. Regarding the issue of H. pylori at the current time point, the H. pylori breath test and a stool test are not performed at [facility]. I strongly suggest that she be given a script to have both these tests performed at an outside laboratory to confirm the presence or absence of H. pylori on an outpatient basis. At the current time point, she is on n.p.o. diet. Since she is on Zofran on a dose of 4 mg every 4 hours, may consider when nausea cools off, we should advance to small volumes of clear liquids. Isael Taylor DO, PhD cc: [id number] TT: 02/03/2017 14:54:48 Confirmation # [id number] Dictation # [id number] MTDD
== END 2017-02-04 14:35 | disposition home or self-care (01) ==
LOC: ED 19:55 → ERH 23:09 → 5RNO 02-03 01:22
PROVIDERS: ADMIT Internal Medicine; ATTEND Internal Medicine
DX: K21.9 Gastro-esophageal reflux disease without esophagitis (principal); D25.9 Leiomyoma of uterus, unspecified; R10.9 Unspecified abdominal pain; E11.22 Type 2 diabetes mellitus with diabetic chronic kidney disease; E87.6 Hypokalemia; G47.30 Sleep apnea, unspecified; I12.9 Hypertensive chronic kidney disease with stage 1 through stage 4 chronic kidney disease, or unspecified chronic kidney disease; N18.9 Chronic kidney disease, unspecified; K59.00 Constipation, unspecified; M79.1 Myalgia; N28.1 Cyst of kidney, acquired; Z79.4 Long term (current) use of insulin; Z79.899 Other long term (current) drug therapy; Z82.3 Family history of stroke; J40 Bronchitis, not specified as acute or chronic; F41.9 Anxiety disorder, unspecified; F32.89 Other specified depressive episodes
CPT/HCPCS: 36415; 71010; 74176; 76830; 80053; 81003; 82803; 83690; 83735; 84145; 85025; 87040; 87086; 93971; 96361; 96365; 96366; 96367; 96375; 96376; 99284; C9113; G0378; J0696; J1885; J2405; J3480; J7040